=== PATIENT | female | born 1995 | race Caucasian/White ===

== ENCOUNTER 2017-11-06 14:37 | Emergency (ER) | payer OTHER ==
--- NOTE | 2017-11-06 14:59 | PDOC ---
Rapid Medical Evaluation Chief Complaint: Pain Time Seen by Provider: 11/06/17 14:56 Medical Evaluation: Allergies Allergy/AdvReac Type Severity Reaction Status Date / Time No Known Allergies Allergy Verified 01/12/16 20:46 11/06/17 14:57 I have performed a brief in-person evaluation of this patient. The patient presents with a chief complaint of: , ~ 13 weeks by dates, has had care but no US per pt, here w/ lower abd pain x 2 days, no vag bleed, dysuria, n/v/f/c Pertinent physical exam findings:Stable w/ unremarkable exam I have ordered the following:beta/ua/US The patient will proceed to the ED for further evaluation. Discharge Disposition - Referrals Referrals: Kylee Balderas MD [Primary Care Provider] - - Patient Instructions - Post Discharge Activity
[2017-11-06 15:00] VITALS: BMI 20.5
[2017-11-06 16:03] LABS: URINE APPEARANCE CLEAR; URINE BILIRUBIN NEGATIVE (NEGATIVE); URINE BLOOD NEGATIVE (NEGATIVE); URINE COLOR STRAW; URINE GLUCOSE (UA) NEGATIVE (NEGATIVE); URINE KETONE NEGATIVE (NEGATIVE); URINE LEUK ESTERASE NEGATIVE (NEGATIVE); URINE NITRITE NEGATIVE (NEGATIVE); URINE PROTEIN NEGATIVE (NEGATIVE); URINE UROBILINOGEN NEGATIVE mg/dL (0.2-1.0)
--- NOTE | 2017-11-06 17:01 | PDOC ---
History of Present Illness <Cristóbal Cruz - Last Filed: 11/06/17 18:19> - General History Source: Patient Exam Limitations: No Limitations - History of Present Illness Initial Comments: 11/06/17 18:42 The patient is a 21 year old female who is ~13 weeks , with no significant past medical history who presents to the emergency department with lower abdominal pain. The patient reports having constant lower abdominal pain as well as lower back pain for about 2 days. She reports having some care, but has yet to have an ultrasound. She denies any vaginal bleeding. She denies recent fevers, chills, headache or dizziness. She denies recent nausea, vomit, diarrhea or constipation. She denies recent dysuria, frequency, urgency or hematuria. She denies recent chest pain or shortness of breath. She has an appointment with her OBGYN on 11/19/17. Allergies: NKA Past surgical history: None reported. Social history: Nonsmoker. Denies EtOH use and recreational drug use. OBGYN: Dr. Kylee Balderas <Nicolas Sánchez - Last Filed: 11/06/17 18:42> - General Chief Complaint: Pain Stated Complaint: 13 WEEKS WITH ABD PAIN Time Seen by Provider: 11/06/17 14:56 Past History - Past Medical History COPD: No - Reproductive History Is Patient Now?: Yes (#): 1 Para: 0 Cervical CA: No Dysfunctional Uterine Bleeding: No Ectopic : No Endometrial CA: No Polycystic Ovaries: No Therapeutic (s) & number: No Tubal Ligation: No - Immunization History Immunization Up to Date: Yes - Suicide/Smoking/Psychosocial Hx Smoking History: Never smoked Have you smoked in the past 12 months: No Hx Alcohol Use: Yes (occasion) Drug/Substance Use Hx: No Substance Use Type: None <Cristóbal Cruz - Last Filed: 11/06/17 18:19> <Nicolas Sánchez - Last Filed: 11/06/17 18:42> - Past Medical History Allergies/Adverse Reactions: Allergies Allergy/AdvReac Type Severity Reaction Status Date / Time No Known Allergies Allergy Verified 11/06/17 15:00 Home Medications: Ambulatory Orders Vit 93/Iron Fum/Folic [ Formula Tablet] 1 each PO DAILY Review of Systems - Review of Systems Able to Perform ROS?: Yes Comments:: 11/06/17 18:42 GENERAL/CONSTITUTIONAL: No fever or chills. No weakness. HEAD, EYES, EARS, NOSE AND THROAT: No change in vision. No ear pain or discharge. No sore throat. GASTROINTESTINAL: +abd pain No nausea, vomiting, diarrhea or constipation. GENITOURINARY: No dysuria, frequency, or change in urination. CARDIOVASCULAR: No chest pain or shortness of breath. RESPIRATORY: No cough, wheezing, or hemoptysis. MUSCULOSKELETAL: No joint or muscle swelling or pain. No neck pain. +back pain SKIN: No rash NEUROLOGIC: No headache, vertigo, loss of consciousness, or change in strength/ sensation. ENDOCRINE: No increased thirst. No abnormal weight change. HEMATOLOGIC/LYMPHATIC: No anemia, easy bleeding, or history of blood clots. ALLERGIC/IMMUNOLOGIC: No hives or skin allergy. <Nicolas Sánchez - Last Filed: 11/06/17 18:42> *Physical Exam - Vital Signs Last Vital Signs Temp Pulse Resp BP Pulse Ox 98.5 F 88 18 132/65 99 11/06/17 14:56 11/06/17 14:56 11/06/17 14:56 11/06/17 14:56 11/06/17 14:56 <Cristóbal Cruz - Last Filed: 11/06/17 18:19> - Vital Signs Last Vital Signs Temp Pulse Resp BP Pulse Ox 98.1 F 78 18 128/71 98 11/06/17 18:32 11/06/17 18:32 11/06/17 18:32 11/06/17 18:32 11/06/17 18:32 - Physical Exam Comments: 11/06/17 18:42 GENERAL: Awake, alert, and fully oriented, in no acute distress HEAD: No signs of trauma EYES: PERRLA, EOMI, sclera anicteric, conjunctiva clear ENT: Auricles normal inspection, hearing grossly normal, nares patent, oropharynx clear without exudates. Moist mucosa NECK: Normal ROM, supple, no lymphadenopathy, JVD, or masses LUNGS: Breath sounds equal, clear to auscultation bilaterally. No wheezes, and no crackles HEART: Regular rate and rhythm, normal S1 and S2, no murmurs, rubs or gallops ABDOMEN: Soft, nontender, normoactive bowel sounds. No guarding, no rebound. No masses COIL SPRING ASSEMBLER: ext genitalia normal appearing, cervix is closed, no midline or adnexal ttp , no discharge or blood in the vault EXTREMITIES: Normal range of motion, no edema. No clubbing or cyanosis. No cords , erythema, or tenderness BACK: No midline spinal tenderness in cervical/thoracic/lumbar region NEUROLOGICAL: Normal speech, cranial nerves intact, negative pronator drift, 5/ 5 strength in all 4 extremities, normal sensation to light touch in all 4 extremities, normal cerebellar exam, normal gait, normal reflexes and tone SKIN: Warm, Dry, normal turgor, no rashes or lesions noted. <Nicolas Sánchez - Last Filed: 11/06/17 18:42> ED Treatment Course - ADDITIONAL ORDERS Additional order review: Laboratory Results 11/06/17 11/06/17 15:47 15:24 Beta HCG, Quant 65518.1 Urine Color Straw Urine Appearance Clear Urine pH 7.0 Ur Specific [place] 1.006 Urine Protein Negative Urine Glucose (UA) Negative Urine Ketones Negative Urine Blood Negative Urine Nitrite Negative Urine Bilirubin Negative Urine Urobilinogen Negative Ur Leukocyte Esterase Negative <Cristóbal Cruz - Last Filed: 11/06/17 18:19> - ADDITIONAL ORDERS Additional order review: Laboratory Results 11/06/17 11/06/17 15:47 15:24 Beta HCG, Quant 91391.1 Urine Color Straw Urine Appearance Clear Urine pH 7.0 Ur Specific [place] 1.006 Urine Protein Negative Urine Glucose (UA) Negative Urine Ketones Negative Urine Blood Negative Urine Nitrite Negative Urine Bilirubin Negative Urine Urobilinogen Negative Ur Leukocyte Esterase Negative <Nicolas Sánchez - Last Filed: 11/06/17 18:42> Medical Decision Making - Medical Decision Making 11/06/17 18:13 21-year-old female, 11 weeks presents to the emergency Department with suprapubic and low back pain. Vitals unremarkable. Exam is normal, os is closed , and patient has no tenderness to palpation. UA, BHCG within normal limits and ultrasound shows a normal 11 week . Pain possibly due to growing /stetching. All results explained to patient, who has follow-up with her OB Dr. Balderas next week. Patient requests discharge. I discussed the physical exam findings, ancillary test results and final diagnoses with the patient. I answered all of the patient's questions. The patient was satisfied with the care received and felt comfortable with the discharge plan and treatment plan. The patient will call their primary care physician within 24 hours to arrange follow-up and will return to the Emergency Department with any new, persistent or worsening symptoms. <Cristóbal Cruz - Last Filed: 11/06/17 18:19> *DC/Admit/Observation/Transfer - Discharge Dispostion Admit: No - Attestations Physician Attestion: 11/06/17 18:19 I, Dr. Cristóbal Cruz MD, attest that this document has been prepared under my direction and personally reviewed by me in its entirety. I further attest, that it accurately reflects all work, treatment, procedures and medical decision -making performed by me. <Cristóbal Cruz - Last Filed: 11/06/17 18:19> - Attestations Scribe Attestion: 11/06/17 18:41 Documentation prepared by Nicolas Sánchez, acting as medical records supervisor for Cristóbal Cruz MD, /DO. <Nicolas Sánchez - Last Filed: 11/06/17 18:42> Diagnosis at time of Disposition: Abdominal pain during in first trimester - Discharge Dispostion Disposition: HOME Condition at time of disposition: Stable - Referrals Referrals: Kylee Balderas MD [Primary Care Provider] - - Patient Instructions Printed Discharge Instructions: DI for Abdominal Pain -- Early Additional Instructions: As discussed, follow-up with Dr. Balderas as scheduled on 11/19/17. Take Tylenol as needed for pain. Return to the emergency department if you have any new, worsening or concerning symptoms. - Post Discharge Activity
[2017-11-06 18:33] VITALS: BP 128/71; PULSE 78; TEMP 98.1
== END 2017-11-06 18:33 | disposition home or self-care (01) ==
LOC: JER 14:37
DX: O26.891 Other specified pregnancy related conditions, first trimester (principal); R10.30 Lower abdominal pain, unspecified; O34.81 Maternal care for other abnormalities of pelvic organs, first trimester; N83.292 Other ovarian cyst, left side; Z3A.11 11 weeks gestation of pregnancy
CPT/HCPCS: 36415; 76817-TC; 81003; 84702; 99282-25

== ENCOUNTER 2018-03-02 01:26 | Emergency (ER) | payer OTHER ==
[2018-03-02 03:08] VITALS: BP 108/70; PULSE 97; TEMP 98.4; BMI 24.0
[2018-03-02] MEDS ORDERED: diphenhydrAMINE HCL 25 MG CAPSULE (FP) PO ONE ×2 (03:31→03:38)
--- NOTE | 2018-03-02 03:38 | PDOC ---
*Physical Exam - Vital Signs Last Vital Signs Temp Pulse Resp BP Pulse Ox 98.4 F 97 H 17 108/70 99 03/02/18 03:00 03/02/18 03:00 03/02/18 03:00 03/02/18 03:00 03/02/18 03:00 Medical Decision Making - Medical Decision Making 03/02/18 03:38 Pt seen by Midlevel Provider under my direct supervision I agree with plan as outlined by Midlevel Provider 03/03/18 01:04 *DC/Admit/Observation/Transfer Diagnosis at time of Disposition: Seasonal allergies, Allergic rhinitis - Discharge Dispostion Disposition: HOME Condition at time of disposition: Stable - Prescriptions Prescriptions: Diphenhydramine HCl [Benadryl -] 25 mg PO Q8H #90 capsule - Referrals Referrals: Kylee Balderas MD [Primary Care Provider] - - Patient Instructions Printed Discharge Instructions: DI for Allergic Rhinitis Additional Instructions: Your Discharge Instructions: You must call primary care physician within 24 hours to arrange follow-up. Return to the Emergency Department with any new, persistent or worsening symptoms, for fever, chills, SOB, dizziness or any other concerning changes that may occur. - Post Discharge Activity Forms/Work/School Notes: Back to Work
--- NOTE | 2018-03-02 03:40 | PDOC ---
History of Present Illness - General Chief Complaint: Cold Symptoms Stated Complaint: COLD (27 WEEKS PREG) History Source: Patient Exam Limitations: No Limitations - History of Present Illness Initial Comments: 03/02/18 03:35 Patient is a 22 year old female with h/o seasonal allergies and breast augmentation c/o nasal congestion x 4 days. States h/o ALLERGIC rhinitis around this time of the year. States she usually takes Benadryl and Claritin however since she is 27 weeks she is not clear if she could take these meds. States she is having a difficult time sleeping because she is unable to breathe through her nose, and her throat gets dry. She has no complaints of abdominal pain vaginal bleeding, leakage of fluid. She is having kicks every hour PMD: Dr. Balderas Pmhx: as above PSOCHX: neg etoh, cig, drug ALL: NKDA GENERAL/CONSTITUTIONAL: [No fever or chills. No weakness. (+) weight change due to .] HEAD, EYES, EARS, NOSE AND THROAT: [No change in vision. No ear pain or discharge. No sore throat.] CARDIOVASCULAR: [No chest pain or shortness of breath.] RESPIRATORY: [No cough, wheezing, or hemoptysis, (+) nasal congestion] GASTROINTESTINAL: [No nausea, vomiting, diarrhea or constipation. No rectal bleeding.] GENITOURINARY: [No dysuria, frequency, or change in urination.] MUSCULOSKELETAL: [No joint or muscle swelling or pain. No neck or back pain.] SKIN AND BREASTS: [No rash or easy bruising.] NEUROLOGIC: [No headache, vertigo, loss of consciousness, or loss of sensation.] PSYCHIATRIC: [No depression or anxiety.] ENDOCRINE: [No increased thirst. No abnormal weight change.] HEMATOLOGIC/LYMPHATIC: [No anemia, easy bleeding, or history of blood clots.] ALLERGIC/IMMUNOLOGIC: [No hives or skin allergy. No latex allergy.] GENERAL: [The patient is awake, alert, and fully oriented, in no acute distress. ] HEAD: [Normal with no signs of trauma.] EYES: [Pupils equal, round and reactive to light, extraocular movements intact, sclera anicteric, conjunctiva clear.] ENT: [Ears normal, nares patent, oropharynx clear without exudates. Moist mucous membranes., (+) nasal congestion ] NECK: [Normal range of motion, supple without lymphadenopathy, JVD, or masses.] LUNGS: [Breath sounds equal, clear to auscultation bilaterally. No wheezes, and no crackles.] HEART: [Regular rate and rhythm, normal S1 and S2 without murmur, rub.] ABDOMEN: [Soft, nontender, normoactive bowel sounds. No guarding, no rebound. No masses.] EXTREMITIES: [Normal range of motion, no edema. No clubbing or cyanosis. No cords, erythema, or tenderness.] NEUROLOGICAL: [Cranial nerves II through XII grossly intact. Normal speech, normal gait.] PSYCH: [Normal mood, normal affect.] SKIN: [Warm, Dry, normal turgor, no rashes or lesions noted.] Past History - Past Medical History Allergies/Adverse Reactions: Allergies Allergy/AdvReac Type Severity Reaction Status Date / Time No Known Allergies Allergy Verified 11/06/17 15:00 Home Medications: Ambulatory Orders Vit 93/Iron Fum/Folic [ Formula Tablet] 1 each PO DAILY Diphenhydramine HCl [Benadryl -] 25 mg PO Q8H #90 capsule 03/02/18 COPD: No - Reproductive History (#): 1 Para: 0 Cervical CA: No Dysfunctional Uterine Bleeding: No Ectopic : No Endometrial CA: No Polycystic Ovaries: No Therapeutic (s) & number: No Tubal Ligation: No - Immunization History Immunization Up to Date: Yes - Suicide/Smoking/Psychosocial Hx Smoking History: Never smoked Have you smoked in the past 12 months: No Information on smoking cessation initiated: No Hx Alcohol Use: No Drug/Substance Use Hx: No Substance Use Type: None *Physical Exam - Vital Signs Last Vital Signs Temp Pulse Resp BP Pulse Ox 98.4 F 97 H 17 108/70 99 03/02/18 03:00 03/02/18 03:00 03/02/18 03:00 03/02/18 03:00 03/02/18 03:00 Medical Decision Making - Medical Decision Making 03/02/18 03:39 Patient is a 22 year old female with h/o seasonal allergies and breast augmentation c/o nasal congestion x 4 days. States h/o ALLERGIC rhinitis around this time of the year. We will give Benadryl 50 mg by mouth I discussed the physical exam findings, ancillary test results and final diagnoses with the patient. I answered all of the patient's questions. The patient was satisfied with the care received and felt comfortable with the discharge plan and treatment plan. The Patient agrees to follow up with the primary care physician within 24-72 hours. *DC/Admit/Observation/Transfer Diagnosis at time of Disposition: Seasonal allergies Allergic rhinitis Qualifiers: Allergic rhinitis trigger: unspecified Allergic rhinitis seasonality: seasonal Qualified Code(s): J30.2 - Other seasonal allergic rhinitis - Discharge Dispostion Disposition: HOME Condition at time of disposition: Stable - Prescriptions Prescriptions: Diphenhydramine HCl [Benadryl -] 25 mg PO Q8H #90 capsule - Referrals Referrals: Kylee Balderas MD [Primary Care Provider] - - Patient Instructions Printed Discharge Instructions: DI for Allergic Rhinitis Additional Instructions: Your Discharge Instructions: You must call primary care physician within 24 hours to arrange follow-up. Return to the Emergency Department with any new, persistent or worsening symptoms, for fever, chills, SOB, dizziness or any other concerning changes that may occur. - Post Discharge Activity Forms/Work/School Notes: Back to Work
== END 2018-03-02 03:45 | disposition home or self-care (01) ==
LOC: JER 01:26
DX: O26.892 Other specified pregnancy related conditions, second trimester (principal); J30.2 Other seasonal allergic rhinitis; Z3A.27 27 weeks gestation of pregnancy
CPT/HCPCS: 99281-25

== ENCOUNTER 2018-05-20 01:10 | Inpatient (IN) | payer OTHER ==
[2018-05-20] MEDS ORDERED: DEXTROSE 5%-LACTATED RINGERS 1,000 ML IV SCH (02:00)
[2018-05-20 02:12] LABS: BASO % 0.1 % (0-2.0); EOS % 0.6 % (0-4.5); HEMATOCRIT 34.1 % (32.4-45.2); HEMOGLOBIN 11.8 GM/dL (10.7-15.3); LYMPH % 18.9 % (8-40); MCH 33.5 pg (25.7-33.7); MCHC 34.7 g/dl (32.0-36.0); MEAN CELL VOLUME 96.5 fl (80-96); MEAN PLT VOLUME 9.8 fl (7.5-11.1); MONO % 11.1 % (3.8-10.2); NEUT % 69.3 % (42.8-82.8); PLATELET COUNT 177 K/MM3 (134-434); RBC 3.53 M/mm3 (3.60-5.2); RDW 13.1 % (11.6-15.6); WHITE BLOOD COUNT 9.4 K/mm3 (4.0-10.0)
[2018-05-20 02:16] VITALS: BMI 26.2
[2018-05-20 02:24] LABS: INR 0.94 (0.83-1.09); PROTHROMBIN TIME (PATIENT) 10.6 SEC (9.7-13.0)
[2018-05-20 02:26] LABS: ACTIVATED PTT 24.4 SECONDS (25.2-36.5)
[2018-05-20 02:31] LABS: ANION GAP 11 MMOL/L (8-16); BLOOD UREA NITROGEN 9 mg/dL (7-18); CALCIUM 8.9 mg/dL (8.5-10.1); CHLORIDE 106 mmol/L (98-107); CO2 23 mmol/L (21-32); CREATININE 0.6 mg/dL (0.55-1.02); GLUCOSE,RANDOM 100 mg/dL (74-106); POTASSIUM 3.7 mmol/L (3.5-5.1); SODIUM 140 mmol/L (136-145)
[2018-05-20] MEDS ORDERED: BUTORPHANOL TARTRATE 1 MG/ML VIAL IVPB ONE (05:50)
[2018-05-20] MEDS ORDERED: PROMETHAZINE HCL 25 MG/1 ML VIAL IVPB ONE (05:50)
[2018-05-20] MEDS ORDERED: OXYTOCIN 30 UNITS in 0.9% NS 30 UNIT/500 ML INFUS.BAG IVPB SCH (06:00)
--- NOTE | 2018-05-20 06:05 | HP ---
Past Medical History - Primary Care Physician PCP:: Donna Tim - Admission Chief Complaint: 22 yrs , 38.5 weeks by emi rooney since 12.30 AM 05/20/18 followed by at 1.00AM History of Present Illness: pnc at [address] [place] [address]. wt gain 40 lbs 10/31/17 panel O pos, rpr nr, rubella pos, hbsag neg, hiv neg, sickle neg, cf screen neg, pap gc/ct neg 02/10/18 quantiferon neg, 1hrGCT 138, rpr nr 05/01/18 h/h11.7/34.8, qop323, , gbs neg gc/ ct neg sonogram by [facility] for growth . 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 Weeks Gestation by Dates: 41.5 ...EDC by Dates: 05/07/18 (corrected edc by tgo ) ...EDC by Sono: 05/29/18 (38.5 weeks . 11/25/17-13.4 wks, 01/14/18--20.5 wks ) Heme/Onc: No: Anemia Infectious Disease: No: AIDS, HIV, STD's, Tuberculosis Psych: Yes: Other (declines h/o mental illness) - Past Surgical History Past Surgical History: Yes: None Hx Myomectomy: No Hx Transabdominal Cerclage: No Additional Surgical History: Bilateral breast Implants in 2016 - Smoking History Smoking history: Never smoked Have you smoked in the past 12 months: No - Alcohol/Substance Use Hx Alcohol Use: No History of Substance Use: reports: None Home Medications - Allergies Allergies/Adverse Reactions: Allergies Allergy/AdvReac Type Severity Reaction Status Date / Time No Known Allergies Allergy Verified 11/06/17 15:00 - Home Medications Home Medications: Ambulatory Orders Vit 93/Iron Fum/Folic [ Formula Tablet] 1 each PO DAILY Physical Exam - Maternity Vital Signs: Vital Signs Temperature 98.5 F 05/20/18 05:00 Pulse Rate 75 05/20/18 05:00 Respiratory Rate 20 05/20/18 05:00 Blood Pressure 136/78 05/20/18 05:00 O2 Sat by Pulse Oximetry (%) Selected Entries 05/20/18 01:15 Temperature 98.9 F Pulse Rate 92 H Respiratory 20 Rate Blood Pressure 135/81 Weight 148 lb Constitutional: Yes: Well Nourished Eyes: Yes: WNL HENT: Yes: WNL, Normocephalic Neck: Yes: WNL Cardiovascular: Yes: WNL Lungs: Clear to auscultation Breast(s): Yes: Breast Implants - Abdominal Exam/OB Fundal Height: 38 Number of Fetuses: Single Presentation: Vertex Contractions: Yes Regularity: Irregular (3-6 min) Intensity: Moderate Heart Rate (range): 140 Category: I Accelerations: Uniform Decelerations: None - Vaginal Exam/OB Dilatation (cm): 1 Effacement (%): 70 Amniotic Membrane Status: Ruptured Nitrazine Test: Positive Amniotic Fluid: Yes: Clear Presentation: Vertex/Position (exam at 6.00AM) Station: -2 - Physical Exam Musculoskeletal: Yes: WNL Extremities: Yes: WNL. No: Calf Tenderness Edema: LLE: 1+, RLE: 1+ Integumentary: Yes: WNL Deep Tendon Reflex Grade: Normal +2 ...Motor Strength: WNL Psychiatric: Yes: WNL, Alert, Oriented - Labs Lab Results: CBC, BMP 05/20/18 01:30 05/20/18 01:30 Problem List - Problems (1) with 38 completed weeks gestation Code(s): Z3A.38 - 38 WEEKS GESTATION OF (2) SROM (spontaneous rupture of membranes) Code(s): GXJ2857 - (3) Labor established Code(s): JKW9740 - Assessment/Plan 22 yrs , 38.5 weeks srom , in labor early, gbs neg plan : pitocin augmentation stadol + phenrgan prn for pain & or epidural labor analgesia trial vaginal delivery
[2018-05-20] MEDS ORDERED: PROMETHAZINE HCL 25 MG/1 ML VIAL ONE (07:46)
[2018-05-20] MEDS ORDERED: BUTORPHANOL TARTRATE 1 MG/ML VIAL ONE ×2 (07:46)
[2018-05-20] MEDS ORDERED: FENTANYL/BUPIVACAINE/NS/PF - PCEA - 50 ML DISP.SYRIN EP ONE ×3 (09:48→19:10)
[2018-05-20] MEDS ORDERED: BUPIVACAINE HCL/PF 0.25% (2.5MG/ML) 10 ML VIAL ONE ×2 (10:04→15:55)
[2018-05-20] MEDS ORDERED: NALOXONE HCL 0.4 MG/ML VIAL IVPUSH PRN (10:33)
[2018-05-20] MEDS ORDERED: FENTANYL/BUPIVACAINE/NS/PF - PCEA - 50 ML DISP.SYRIN EP SCH (10:45)
--- NOTE | 2018-05-20 14:18 | PN ---
Progress Note, Labor Vaginal Exam #1 Labor Exam Date: 05/20/18 Labor Exam Time: 14:15 Heart Rate (range): 140 Dilatation: 6 Effacement (%): 90 Amniotic Membrane Status: Ruptured Presentation: Vertex/Position Station: 0 Remarks: ant lip edematous fhr cat-1 uc q2 min epidural at 10.30 AM . pitocin 4ml/hr plan ct trial of labor Selected Entries 05/20/18 05/20/18 13:15 14:00 Temperature 98.7 F Pulse Rate 80 Respiratory 18 Rate Blood Pressure 134/73 Vaginal Exam #2 Labor Exam Date: 05/20/18 Labor Exam Time: 14:20 Heart Rate (range): 160-170 Dilatation: 8 Effacement (%): 90 Amniotic Membrane Status: Ruptured Presentation: Vertex/Position Station: +1 (+1/+2, caput) Remarks: fhr cat-1 Uc 1-2 min Pit reduced to 2 ml/hr 16 hrs rom Temp 99.1, Pulse 89 , BP 132/74 rx Iv Ampicillin 2 gm ivpb , pt c/o , feels she is warm rx Po Tylenol 2 tabs stat Vaginal Exam #3 Labor Exam Date: 05/20/18 Labor Exam Time: 18:00 Heart Rate (range): 160 Dilatation: 8-9 Effacement (%): 100 Amniotic Membrane Status: Ruptured Presentation: Vertex/Position Station: +2 (caput large) Remarks: fhr cat-1 uc 12-3 min Selected Entries 05/20/18 05/20/18 17:45 18:00 Temperature 99.5 F Pulse Rate 92 H Respiratory 18 Rate Blood Pressure 129/[address] trial of labor
[2018-05-20] MEDS ORDERED: ELECTROLYTE-148 SOLN 1,000 ML IV SCH (15:30)
[2018-05-20] MEDS ORDERED: AMPICILLIN SODIUM 2 GM VIAL ONE (16:23)
[2018-05-20] MEDS ORDERED: ACETAMINOPHEN 325 MG TABLET (FP) ONE ×2 (16:24→22:14)
[2018-05-20] MEDS ORDERED: ACETAMINOPHEN 325 MG TABLET (FP) PO ONE ×2 (16:30→20:30)
[2018-05-20] MEDS ORDERED: AMPICILLIN - 2 GM in SODIUM CHLORIDE 100 ML IVPB ONE (16:30)
[2018-05-20] MEDS ORDERED: OXYTOCIN 20 UNITS in 0.9% NS 20 UNIT/1,000 ML INFUS.BAG IV ONE ×2 (19:04→22:58)
--- NOTE | 2018-05-20 19:10 | PN ---
Progress Note, Labor Vaginal Exam #1 Labor Exam Date: 05/27/18 Labor Exam Time: 19:00 Heart Rate (range): 155 Dilatation: 9 Effacement (%): 100 Amniotic Membrane Status: Ruptured Presentation: Vertex/Position Station: +2 (caput) Remarks: fhr cat-1 uc 1-2-3 min pt has urge to push pt is refrained from pushing T98.9, BP 125/85 mmhg pulse 89/min plan ct trial of labor Vaginal Exam #2 Labor Exam Date: 05/20/18 Labor Exam Time: 20:00 Heart Rate (range): 160 Dilatation: rim Effacement (%): 100 Amniotic Membrane Status: Ruptured Station: +2 (+2, caput, with pushing descent noted) Remarks: fhr cat-1 uc 1-2 min pt refrained from pushing Temp 99.7 , BP 139/71, pulse 89 rx iv ampicillin 1 gm q 4 hh rx po tylenol 650 mg stat Vaginal Exam #3 Labor Exam Date: 05/20/18 Labor Exam Time: 20:50 Heart Rate (range): 170 Dilatation: 10 Effacement (%): 100 Amniotic Membrane Status: Ruptured Station: +2 (+2/+3) Remarks: fhr cat-2 uc 1-2 pt pushing Selected Entries 05/20/18 20:45 Pulse Rate 85 Blood Pressure 136/67
[2018-05-20] MEDS ORDERED: LIDOCAINE HCL 1% PRESERVATIVE FREE - 30ML VIAL ONE (19:11)
[2018-05-20] MEDS ORDERED: AMPICILLIN SODIUM 1 GM VIAL ONE (20:18)
[2018-05-20] MEDS: ACETAMINOPHEN 325 MG TABLET (FP) PO PRN (20:30)
[2018-05-20] MEDS: AMPICILLIN - 1 GM in SODIUM CHLORIDE 100 ML IVPB SCH (20:30)
[2018-05-20] MEDS ORDERED: IBUPROFEN 600 MG TABLET (FP) PO ONE (22:14)
[2018-05-20] MEDS ORDERED: WITCH HAZEL 50% (TUCKS) 40 PAD/JAR PAD TP PRN (22:29)
[2018-05-20] MEDS ORDERED: BENZOCAINE 20% 57 GM BOTTLE TP PRN (22:29)
[2018-05-20] MEDS ORDERED: BENZOCAINE 28 GM HEMORRHOIDAL OINTMENT TP PRN (22:29)
[2018-05-20] MEDS ORDERED: METHYLERGONOVINE MALEATE 0.2 MG/1 ML AMP IM PRN (22:29)
[2018-05-20] MEDS ORDERED: oxyCODONE HCL 5 MG TABLET PO PRN (22:29)
[2018-05-20] MEDS ORDERED: BISACODYL 10 MG SUPP.RECT RC PRN (22:29)
[2018-05-20] MEDS ORDERED: OXYTOCIN 20 UNITS in 0.9% NS 20 UNIT/1,000 ML INFUS.BAG IV SCH (22:30)
[2018-05-20] MEDS: IBUPROFEN 600 MG TABLET (FP) PO PRN (22:30)
[2018-05-20 22:55] LABS: ARTERIAL BLOOD GAS PCO2 59.2 mmHg (35-45); ARTERIAL BLOOD GAS pH 7.26 (7.35-7.45)
--- NOTE | 2018-05-20 22:56 | PN ---
Delivery - Delivery Vaginal Delivery: Spontaneous (baby delievered from [place] position, tight loop of cord around neck, clamped & cut before delivery of shoulder, exagerated lithotomy position was given to deliver ant shoulder , immediate nasal , oral suction , baby needed ppv, 6/9..placenta removed completly with membranes. median episiotomy sutuured in layers with chr catgut #2/0 . IN exam mucosa & sphincter was intact .) Type of Anesthesia: Local, Epidural Episiotomy/Laceration: Midline EBL (cc): 350 (raphael removed before delivery ) Delivery, Single - Stages of Labor Date 1st Stage Initiatied: 05/20/18 Time 1st Stage Initiated: 01:00 Date 2nd Stage Initiated: 05/20/18 Time 2nd Stage Initiated: 20:50 Date of Delivery: 05/20/18 Time of Delivery: 21:51 Date Placenta Delivered: 05/20/18 Time Placenta Delivered: 21:54 - Condition of Infant Financial Systems Manager/Ear Muff Assembler Present: No Gender: Female Weight: 7 lb (ht 19") Position: Left, OA (tight loop of cord around neck) Total Hours ROM (Hrs/Mins): 21 hrs -21 min - 1 Minute Total Score: 6 5 Minutes Total Score: 9 - [place] Feeding Plan Initial Plan: Elected not to breastfeed exclusively throughout hospitalization Remarks - Remarks Remarks: 22 yrs , 38.5 weeks srom followed by LP . GBS neg Pnc at [address] [place] [address] Pitocin Augmentation started Stadol + Phenrgan followed by Epidural labor analgesia was given . Intrapartum iv Ampicillin 2 doses were given after 16 hrs of srom Low grade fever Tmax 99.7, rx po tylenol was given x2 . PP v/s Temp 99.2, BP 147/79, Pulse 75
[2018-05-20 22:57] LABS: ARTERIAL BLOOD GAS BASE EXCESS -2.8 meq/l (-2-2)
[2018-05-20 23:02] LABS: ARTERIAL BLD GAS O2 SATURATION 12.9 % (90-98.9); ARTERIAL BLOOD GAS PO2 12.9 mmHg (80-100)
[2018-05-20 23:03] LABS: VENOUS PC02 44.3 mmHg (38-52); VENOUS PH 7.33 (7.32-7.42)
[2018-05-20 23:04] LABS: VENOUS PO2 19.9 mmHg (28-48)
[2018-05-21] MEDS ORDERED: AMPICILLIN SODIUM 1 GM VIAL ONE (00:38)
[2018-05-21] MEDS ORDERED: SODIUM CHLORIDE 100 ML IVPB ONE (00:38)
[2018-05-21] MEDS: AMPICILLIN - 1 GM in SODIUM CHLORIDE 100 ML IVPB SCH (00:44)
[2018-05-21] MEDS: IBUPROFEN 600 MG TABLET (FP) PO PRN ×4 (03:56→22:41)
[2018-05-21] MEDS: ACETAMINOPHEN 325 MG TABLET (FP) PO PRN ×3 (03:57→17:02)
--- NOTE | 2018-05-21 08:02 | PN ---
Post Progress Note - Subjective Subjective: no c/o fever c/o cramps voided without difficulty Post Day: 1 Type of Delivery: Vital Signs: Vital Signs Temperature 98.4 F 05/21/18 06:00 Pulse Rate 73 05/21/18 06:00 Respiratory Rate 18 05/21/18 06:00 Blood Pressure 111/64 05/21/18 06:00 O2 Sat by Pulse Oximetry (%) 100 05/20/18 23:00 Breast Exam: Yes: Soft, Other (plans to BF ). No: Engorged Uterus: Yes: Fundus Firm, Fundus below umbilicus, Non-tender, Other (no suprapubic or cva tenderness) Lochia: Yes: Rubra Lochia, amount: Moderate (no odor) Perineum: Yes: Intact, Episiotomy (healing well, wound clean ) Activity: Ambulating - Labs Labs: CBC WBC 9.4 K/mm3 (4.0-10.0) 05/20/18 01:30 RBC 3.53 M/mm3 (3.60-5.2) L 05/20/18 01:30 Hgb 11.8 GM/dL (10.7-15.3) 05/20/18 01:30 Hct 34.1 % (32.4-45.2) 05/20/18 01:30 MCV 96.5 fl (80-96) H 05/20/18 01:30 MCH 33.5 pg (25.7-33.7) 05/20/18 01:30 MCHC 34.7 g/dl (32.0-36.0) 05/20/18 01:30 RDW 13.1 % (11.6-15.6) 05/20/18 01:30 Plt Count 177 K/MM3 (134-434) 05/20/18 01:30 MPV 9.8 fl (7.5-11.1) 05/20/18 01:30 Absolute Neuts (auto) 6.5 K/mm3 (1.5-8.0) 05/20/18 01:30 Neutrophils % 69.3 % (42.8-82.8) 05/20/18 01:30 Lymphocytes % 18.9 % (8-40) 05/20/18 01:30 Monocytes % 11.1 % (3.8-10.2) H 05/20/18 01:30 Eosinophils % 0.6 % (0-4.5) 05/20/18 01:30 Basophils % 0.1 % (0-2.0) 05/20/18 01:30 Nucleated RBC % 0 % (0-0) 05/20/18 01:30 Problem List - Problems (1) with 38 completed weeks gestation Code(s): Z3A.38 - 38 WEEKS GESTATION OF (2) SROM (spontaneous rupture of membranes) Code(s): UWQ2668 - (3) Labor established Code(s): JLW1253 - (4) Normal vaginal delivery Code(s): O80 - ENCOUNTER FOR FULL-TERM UNCOMPLICATED DELIVERY (5) Encounter for visit Code(s): Z39.2 - ENCOUNTER FOR ROUTINE FOLLOW-UP Assessment/Plan afebrile, asymptomatic stable Plan encourage po fluids & ambulation repeat cbc today
[2018-05-21] MEDS: FERROUS SO4 325 MG TABLET (FP) PO SCH ×2 (09:01→16:59)
[2018-05-21] MEDS: PRENATAL VITAMINS W/ FOLIC ACID TABLET (FP) PO SCH (09:01)
[2018-05-21 10:12] LABS: BASO % 0.2 % (0-2.0); EOS % 0.4 % (0-4.5); HEMATOCRIT 29.1 % (32.4-45.2); HEMOGLOBIN 9.8 GM/dL (10.7-15.3); LYMPH % 12.3 % (8-40); MCHC 33.9 g/dl (32.0-36.0); MEAN CELL VOLUME 97.3 fl (80-96); MEAN PLT VOLUME 10.4 fl (7.5-11.1); MONO % 8.3 % (3.8-10.2); NEUT % 78.8 % (42.8-82.8); PLATELET COUNT 125 K/MM3 (134-434); RBC 2.99 M/mm3 (3.60-5.2); RDW 13.1 % (11.6-15.6); WHITE BLOOD COUNT 12.8 K/mm3 (4.0-10.0)
[2018-05-21] MEDS ORDERED: SENNOSIDES/DOCUSATE COMBO (SENNA PLUS) TABLET (UD) PO PRN (22:00)
[2018-05-21 23:24] VITALS: TEMP 98.6
[2018-05-22 07:25] VITALS: BP 107/66; PULSE 80
[2018-05-22] MEDS: FERROUS SO4 325 MG TABLET (FP) PO SCH (08:44)
[2018-05-22] MEDS: IBUPROFEN 600 MG TABLET (FP) PO PRN (09:01)
[2018-05-22] MEDS: PRENATAL VITAMINS W/ FOLIC ACID TABLET (FP) PO SCH (09:04)
[2018-05-22] MEDS: ACETAMINOPHEN 325 MG TABLET (FP) PO PRN (09:04)
--- NOTE | 2018-05-22 10:12 | DS ---
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 CLERK Vital Signs: Vital Signs Temperature 98.6 F 05/22/18 07:23 Pulse Rate 80 05/22/18 07:23 Respiratory Rate 18 05/22/18 07:23 Blood Pressure 107/66 05/22/18 07:23 O2 Sat by Pulse Oximetry (%) 100 05/20/18 23:00 Constitutional: Yes: Well Nourished Eyes: Yes: Conjunctiva Clear HENT: Yes: Atraumatic Neck: Yes: Supple Cardiovascular: Yes: Regular Rate and Rhythm Respiratory: Yes: Regular Gastrointestinal: Yes: Normal Bowel Sounds Pelvis: Yes: WNL External Genitalia: Yes: Normal Vaginal Exam: Yes: Normal Cervix: Yes: Normal Uterus: Yes: Firm ....Post : Yes: Uterus firm, Moderate lochia serosa Neurological: Yes: Alert, Oriented ...Motor Strength: WNL Psychiatric: Yes: Alert, Oriented Labs: CBC, BMP 05/21/18 07:45 05/20/18 01:30 Delivery - Delivery Vaginal Delivery: Spontaneous (baby delievered from [place] position, tight loop of cord around neck, clamped & cut before delivery of shoulder, exagerated lithotomy position was given to deliver ant shoulder , immediate nasal , oral suction , baby needed ppv, 6/9..placenta removed completly with membranes. median episiotomy sutuured in layers with chr catgut #2/0 . 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 Loader And Unloader Present: No Gender: Female Weight: 7 lb (ht 19") Position: Left, OA (tight loop of cord around neck) Total Hours ROM (Hrs/Mins): 21 hrs -21 min - 1 Minute Total Score: 6 5 Minutes Total Score: 9 - [place] Feeding Plan Initial Plan: Elected not to breastfeed exclusively throughout hospitalization Discharge Summary Reason For Visit: LABOR Current Active Problems Encounter for visit (Acute) Labor established (Acute) Normal vaginal delivery (Acute) with 38 completed weeks gestation (Acute) SROM (spontaneous rupture of membranes) (Acute) Procedures: Principal: Normal spontaneous vaginal delivery Hospital Course: Routine care Condition: Stable - Instructions Diet, Activity, Other Instructions: Post Instructions DIET: Continue good diet high in protein, calcium, and iron rich foods. Drink at least eight (8) glasses of water daily in addition to other fluids. ___ Regular diet MEDICATIONS: Continue vitamins and iron as previously directed. Motrin and Tylenol may be taken for minor discomfort. ACTIVITY: Mild to moderate exercise may be started in two (2) weeks. Take frequent rest periods. Resume normal activity after six (6) week check up. WOUND CARE OF OPERATIVE SITE: Continue use of perineal bottle until vaginal discharge stops. Keep area clean. Shower daily. Keep abdominal wound dry. Report any drainage or redness to physician. Tub baths, tampons and douches are not permitted for 6 weeks. SITZ BATHS prn tid for perineal pain ct Breast feeding & or Bottle feeding BREAST CARE: (For those that are not breast feeding): If engorgement occurs: Wear tight fitting bra. Take Tylenol or Motrin for pain. Apply cold packs (ice in bags to each breast ) FAMILY PLANNING: There are many control alternatives to pursue and they should be discussed at your first office visit. You may resume sexual activity after your six (6) week check up. (Remember, breast feeding is not a contraceptive) NEXT PHYSICIAN APPOINTMENT: Be certain to call for a six (6) week appointment, unless otherwise directed. Call Clinic or got to Emergency Dept if you have any of the following: Heavy vaginal bleeding Painful urination Leg pain Unusual odor noted to vaginal bleeding High fever Red streaking noted on breast Referrals: Donna Tim MD [Staff Physician] - Disposition: HOME - Home Medications Comprehensive Discharge Medication List: Ambulatory Orders Vit 93/Iron Fum/Folic [ Formula Tablet] 1 each PO DAILY Acetaminophen [Tylenol .Regular Strength -] 650 mg PO Q3H PRN tablet 05/21/18 Benzocaine [Americaine 20% [place] -] 1 spray TP PRN PRN bottle 05/21/18 Ferrous Sulfate [Feosol] 325 mg PO BIDWM #60 tab 05/21/18 Ibuprofen [Motrin -] 200 mg PO Q4H PRN tablet 05/21/18 Vitamins (Sjr) - 1 tab PO DAILY #30 tablet 05/21/18 Sennosides/Docusate Sodium [Pericolace -] 2 tablet PO HS PRN #30 tablet Witch Trini 50% (Tucks) [Tucks Pads -] 1 pad TP PRN PRN pad 05/21/18
--- NOTE | 2018-05-27 14:36 | PATH ---
Surgical Pathology Report Patient Name: JAKI RUSSELL Med. Rec. 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 Specimen(s) Received PLACENTA Clinical History , , maternal fever Final Diagnosis PLACENTA, DELIVERY: 534 G THIRD TRIMESTER PLACENTA WITH TRIVASCULAR UMBILICAL CORD AND UNREMARKABLE PLACENTAL MEMBRANES. Electronically Signed Marimar Avelar M.D. Gross Description The specimen is received fresh labeled placenta and is a 534 gram, 16.0 x 14.5 x 3.4 cm. placenta with attached membranes and umbilical cord. The attached membranes are mosquera, translucent with focal opacities and insert marginally. The umbilical cord measures 11 cm. in length and averages 1 cm. in diameter. The cord inserts eccentrically, 5 cm. to the nearest margin. No true knots or strictures are identified. Cut surface of the umbilical cord reveals 3 vessels. The surface is flores blue with moderate fibrin deposition and appropriate caliber vessels. The maternal surface is red-brown with focal defects. Sectioning reveals red-brown, spongy parenchyma. No lesions are identified. Supervisor Coal Handling sections are submitted in three cassettes as follows: 1- membrane rolls and umbilical cord; 2-3- full thickness sections of placenta. 05/26/2018 [place]05/26/2018
== END 2018-05-22 12:05 | disposition home or self-care (01) | DRG 560 ==
LOC: JLDR 01:10 → J3W 23:54
PROVIDERS: ADMIT Obstetrics & Gynecology; ATTEND Obstetrics & Gynecology
PROC: 10E0XZZ Delivery of Products of Conception, External Approach (ICD-10-PCS; principal; 2018-05-20)
PROC: 0W8NXZZ Division of Female Perineum, External Approach (ICD-10-PCS; 2018-05-20)
DX: O69.1XX0 Labor and delivery complicated by cord around neck, with compression, not applicable or unspecified (principal); Z3A.38 38 weeks gestation of pregnancy; Z37.0 Single live birth
CPT/HCPCS: 36415; 36600; 59409; 80048; 82803; 85025; 85610; 85730; 86593; 86850; 86900; 86901; 88307-TC

== ENCOUNTER 2020-06-08 12:46 | Emergency (ER) | payer OTHER ==
[2020-06-08 13:01] VITALS: BP 134/80; PULSE 79; TEMP 98.4; BMI 22.1
[2020-06-08] MEDS ORDERED: predniSONE 20 MG TABLET (UD) PO ONE (13:21)
[2020-06-08] MEDS ORDERED: predniSONE 20 MG TABLET (UD) ONE (13:28)
--- NOTE | 2020-06-08 13:30 | PDOC ---
History of Present Illness - General Chief Complaint: Hives Stated Complaint: REDNESS Time Seen by Provider: 06/08/20 12:59 History Source: Patient Exam Limitations: No Limitations Past History - Travel History Traveled outside of the country in the last 30 days: No Close contact w/someone who was outside of country & ill: No - Medical History Allergies/Adverse Reactions: Allergies Allergy/AdvReac Type Severity Reaction Status Date / Time No Known Allergies Allergy Verified 06/08/20 12:56 Home Medications: Ambulatory Orders Diphenhydramine HCl [Benadryl -] 25 mg PO Q8H #21 capsule 06/08/20 Methylprednisolone [Medrol Dose Francisco Javier] 4 mg PO ASDIR #21 tablet 06/08/20 Asthma: No Cancer: No Cardiac Disorders: No COPD: No Diabetes: No HTN: No Seizures: No Thyroid Disease: No - Reproductive History Is Patient Now?: No (#): 1 Para: 0 Cervical CA: No Dysfunctional Uterine Bleeding: No Ectopic : No Endometrial CA: No Polycystic Ovaries: No Therapeutic (s) & number: No Tubal Ligation: No - Immunization History Immunization Up to Date: Yes - Psycho-Social/Smoking History Smoking History: Never smoked Have you smoked in the past 12 months: No Information on smoking cessation initiated: No - Substance Abuse Hx (Audit-C & DAST Scrn) How often the patient has a drink containing alcohol: Never Score: In Men: 4 or > Positive; In Women: 3 or > Positive: 0 Screen Result (Pos requires Nsg. Audit-10AR): Negative In the last yr the pt used illegal drug/Rx for NonMed reason: No Score: Yes response is considered Positive: 0 Screen Result (Positive result requires Nsg. DAST-10): Negative Review of Systems - Review of Systems Able to Perform ROS?: Yes Comments:: 06/08/20 13:24 CONSTITUTIONAL: Absent: fever, chills, diaphoresis, generalized weakness, malaise, loss of appetite HEENT: Absent: rhinorrhea, nasal congestion, throat pain, throat swelling, difficulty swallowing, mouth swelling, ear pain, eye pain, visual Changes CARDIOVASCULAR: Absent: chest pain, loss of consciousness, palpitations, irregular heart rate, peripheral edema RESPIRATORY: Absent: cough, shortness of breath, dyspnea with exertion, orthopnea, wheezing, stridor, hemoptysis SKIN: Present: hives Absent: rash, itching, pallor NEUROLOGIC: Absent: headache, focal weakness or paresthesias, dizziness, unsteady gait, seizure, mental status changes, bladder or bowel incontinence PSYCHIATRIC: Absent: anxiety, depression, suicidal or homicidal ideation, hallucinations. Is the patient limited Arabic proficient: No *Physical Exam - Vital Signs Last Vital Signs Temp Pulse Resp BP Pulse Ox 98.4 F 79 18 134/80 100 06/08/20 12:56 06/08/20 12:56 06/08/20 12:56 06/08/20 12:56 06/08/20 12:56 - Physical Exam 06/08/20 13:30 GENERAL: The patient is awake, alert, and fully oriented, in no acute distress. HEAD: Normal with no signs of trauma. EYES: Pupils equal, round and reactive to light, extraocular movements intact, sclera anicteric, conjunctiva clear. THROAT: Airway open clear and maintained. No stridor or erythema. EXTREMITIES: Normal range of motion, no edema. NEUROLOGICAL: Normal speech, normal gait. PSYCH: Normal mood, normal affect. SKIN: Urticaria present to the chest, back abdomen, arms and legs b/l. Warm, Dry, normal turgor, or lesions noted. Medical Decision Making - Medical Decision Making 06/08/20 15:54 Patient is a 24-year-old female no past medical history who presents to the ER today for a rash starting on Saturday. She states that she took Robitussin starting on Saturday for cough. She notes that the cough has gotten better. She states that her last dose of Robitussin was on Saturday morning. She notes that Saturday afternoon she broke out in a full-body rash. Denies fevers, chills, difficulty breathing, shortness of breath, throat pain and stridor. A/P: Allergic reaction On exam patient has diffuse urticaria to the torso, abdomen arms and legs bilaterally. This is consistent with an allergic reaction from medication. Will advise patient to stop taking Robitussin. We will place patient on prednisone and have her continue Benadryl. Have patient to follow-up with her primary care doctor this week. Discharge home with return precautions. I discussed the physical exam findings, ancillary test results and final diagnoses with the patient. I answered all of the patient's questions. The patient was satisfied with the care received and felt comfortable with the discharge plan and treatment plan. The Patient agrees to follow up with the primary care physician/specialist within 24-72 hours. Return precautions were given. Discharge - Discharge Information Problems reviewed: Yes Clinical Impression/Diagnosis: Acute urticaria Condition: Stable Disposition: HOME - Admission No - Additional Discharge Information Prescriptions: Diphenhydramine HCl [Benadryl -] 25 mg PO Q8H #21 capsule Methylprednisolone [Medrol Dose Francisco Javier] 4 mg PO ASDIR #21 tablet - Follow up/Referral Referrals: Jimmie Heredia MD [Primary Care Provider] - - Patient Discharge Instructions Patient Printed Discharge Instructions: DI for Hives Additional Instructions: You were seen for your rash today It is most likely an allergic reaction Take the benadryl every 8 hours when you get home Start taking the medrol dose pack starting tomorrow morning Stop taking the cold medicine that you were taking as this may be causing your allergic reaction Follow up with your primary care doctor this week for further evaluation Return to the ER if you have worsening rash, difficulty breathing, or if you have any changes in your symptoms. Hoy te vieron por tu sarpullido Lo ms probable es que sea lucina reaccin alrgica. [place] benadryl cada 8 horas cuando llegue a casa Empiece a benji el paquete de dosis de medrol a partir de maana por la maana. Deje de benji el medicamento para el resfriado que estaba tomando ya que esto puede estar causando banks reaccin alrgica. Altagracia un seguimiento con banks mdico de atencin primaria esta semana para lucina evaluacin adicional Regrese a la stef de emergencias si tiene un sarpullido que empeora, dificultad para respirar o si tiene algn cambio en dhiraj sntomas. - Post Discharge Activity Work/Back to School Note: Back to Work
== END 2020-06-08 13:53 | disposition home or self-care (01) ==
LOC: JER 12:46 → JERFT 12:46
DX: L50.9 Urticaria, unspecified (principal)
CPT/HCPCS: 99283-25

== ENCOUNTER 2021-10-29 17:19 | Emergency (ER) | payer OTHER ==
[2021-10-29 17:29] VITALS: BP 132/87; PULSE 94; TEMP 98; BMI 23.6
== END 2021-10-29 19:45 | disposition home or self-care (01) ==
LOC: JER 17:19
DX: L02.221 Furuncle of abdominal wall (principal)
CPT/HCPCS: 99283-25

== ENCOUNTER 2023-08-20 22:56 | Emergency (ER) | payer OTHER ==
[2023-08-20 23:00] VITALS: BP 130/84; PULSE 81; RESP 18; TEMP 98.6; BMI 22.4
== END 2023-08-21 00:42 | disposition home or self-care (01) ==
LOC: JERFT 22:56
DX: T19.2XXA Foreign body in vulva and vagina, initial encounter (principal)
CPT/HCPCS: 99283-25